=== PATIENT | male | born 1995 | race Caucasian/White ===

== ENCOUNTER 2016-11-27 | Emergency (ER) | payer MEDICAID ==
--- NOTE | 2016-11-27 12:08 | ED Physician Documentation ---
PD HPI GI BLEED - Stated complaint Stated Complaint: BLOOD IN STOOL - Chief complaint Chief Complaint: Abd Pain - History obtained from History obtained from: Patient - History of Present Illness Timing - onset: Today Timing - details: Abrupt onset (while having a BM, he had a sharp aching pain in rectum that traveled into back and then noted red blood when he wiped. No prior similar. Had not had BM for 4 days but did not feel stool was particularly hard or large.). No: Still present Similar symptoms before: Has not had sx before Recently seen: Not recently seen Review of Systems Constitutional: denies: Fever, Chills GI: reports: Constipation (for 4 days had not had BM). denies: Abdominal Pain, Vomiting, Diarrhea : denies: Dysuria, Frequency PD PAST MEDICAL HISTORY - Past Medical History GI: None : None Psych: Bipolar disorder, ADD/ADHD - Past Surgical History Past Surgical History: No - Present Medications Home Medications: Ambulatory Orders Medication Instructions Recorded Confirmed Famotidine [Pepcid] 20 mg PO BID #30 tablet 06/06/16 11/27/16 Docusate Sodium 100 mg PO DAILY #30 capsule 11/27/16 Hydrocortisone Acetate [Anucort-Hc] 25 mg RC DAILY #5 supp.rect 11/27/16 - Allergies Allergies/Adverse Reactions: Allergies Allergy/AdvReac Type Severity Reaction Status Date / Time No Known Drug Allergies Allergy Verified 11/27/16 11:27 - Living Situation Living Situation: reports: With spouse/s.o. (who is male, but they deny rectal intercourse.) Living Arrangement: reports: At home - Social History Does the pt smoke?: Yes Smoking Status: Current every day smoker Does the pt drink ETOH?: Yes Does the pt have substance abuse?: Yes - Immunizations Immunizations are current?: Yes PD ED PE NORMAL - Vitals Vital signs reviewed: Yes - General General: Alert and oriented X 3, Well developed/nourished, Other (anxious) - Abdomen Abdomen: Soft, Non tender - Male Male : Deferred - Rectal Rectal: Other (no hemorrhoids. Small anal fissure wihtout bleeding right now. Digital exam with small fissure feeling, and is tender. Trace of red blood just inside sphincter. Firm stool in vault without impaction. ) - Derm Derm: Normal color, Warm and dry Results - Vitals Vitals: Vital Signs - 24 hr 11/27/16 12:33 Temperature 36.1 C L Heart Rate 61 Respiratory 18 Rate Blood Pressure 134/60 H O2 Saturation 96 Oxygen O2 Source Room air PD MEDICAL DECISION MAKING - ED course Complexity details: considered differential (there is small fissure on exam. trace blood in vault. Stool firm but not impacted. Seems rectal cause of blood. ), d/w patient Departure - Departure Disposition: Home, Self Care Clinical Impression: Rectal bleeding, Acute anal fissure Condition: Stable Record reviewed to determine appropriate education?: Yes Instructions: ED Hematochezia Stable, ED Fissure Anal Ch Follow-Up: Theresa Bojorquez ARNP [Primary Care Provider] - Prescriptions: Hydrocortisone Acetate [Anucort-Hc] 25 mg RC DAILY #5 supp.rect Docusate Sodium 100 mg PO DAILY #30 capsule Comments: The stool test does show a little bit of blood to the stool (so some make be just unusual coloring). There is small tear near rectal opening, so I think that is the cause. Anti-inflammatory suppository daily for 3-5 days until better. Stool softener for the next 1-2 weeks. Recheck if not better over the next few days. Discharge Date/Time: 11/27/16 12:38
== END 2016-11-27 12:38 | disposition home or self-care (01) ==
CPT/HCPCS: 99283

== ENCOUNTER 2017-05-14 21:15 | Emergency (ER) | payer MEDICAID ==
--- NOTE | 2017-05-14 23:19 | ED Physician Documentation ---
History of Present Illness - Stated complaint Stated Complaint: TINGLING/NUMBNESS - Chief complaint Chief Complaint: General - History obtained from History obtained from: Patient - History of Present Illness Timing: Today - Additonal information Additional information: Patient is a 22 year old male who is presenting to the emergency department for heart racing and parasthesias. 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 when he started to get some tingling in his face and hands. patient states that it left his face but he felt it in both his feet. Patient did say that he did drink two coffees this morning, dr. pepper this afternoon, and the water he drinks he uses an energy flavor packet. Upon initial evaluation in the emergency department patient was feeling better. Review of Systems Constitutional: denies: Fever, Chills Eyes: denies: Decreased vision, Photophobia Ears: denies: Ear pain, Drainage/discharge Nose: denies: Congestion Throat: denies: Sore throat Cardiac: reports: Palpitations. denies: Chest pain / pressure, Calf pain Respiratory: denies: Cough, Wheezing GI: reports: Nausea. denies: Vomiting, Constipation, Diarrhea Musculoskeletal: denies: Neck pain, Back pain, Extremity pain Neurologic: reports: Numbness. denies: Generalized weakness, Focal weakness Immunocompromised: denies: Immunocompromised PD PAST MEDICAL HISTORY - Past Medical History Past Medical History: Yes GI: None : None Psych: Depression, Anxiety, Bipolar disorder, ADD/ADHD - Past Surgical History Past Surgical History: No - Present Medications Home Medications: Ambulatory Orders Medication Instructions Recorded Confirmed Famotidine [Pepcid] 20 mg PO BID #30 tablet 06/06/16 05/14/17 - Allergies Allergies/Adverse Reactions: Allergies Allergy/AdvReac Type Severity Reaction Status Date / Time No Known Drug Allergies Allergy Verified 11/27/16 11:27 - Social History Does the pt smoke?: Yes Smoking Status: Current every day smoker Does the pt drink ETOH?: No Does the pt have substance abuse?: Yes Substance Use and Type: Marijuana - Immunizations Immunizations are current?: Yes - POLST Patient has POLST: No PD ED PE NORMAL - Vitals Vital signs reviewed: Yes (within normal limits) - General General: Alert and oriented X 3, No acute distress, Well developed/nourished - HEENT HEENT: Atraumatic, PERRL, Moist mucous membranes - Neck Neck: Supple, no meningeal sign, No JVD - Cardiac Cardiac: RRR, No murmur - Respiratory Respiratory: No respiratory distress, Clear bilaterally - Abdomen Abdomen: Soft, Non tender, Non distended - Derm Derm: Normal color, Warm and dry, No rash - Extremities Extremities: No deformity, No edema, No calf tenderness / cord - Neuro Neuro: Alert and oriented X 3, 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, No motor deficit, No sensory deficit, Normal speech - Psych Psych: Normal mood, Normal affect Results - Vitals Vitals: Vital Signs - 24 hr 05/14/17 05/14/17 21:19 23:34 Temperature 36.8 C Heart Rate 88 56 L Respiratory 20 17 Rate Blood Pressure 128/68 117/70 O2 Saturation 100 96 Oxygen O2 Source Room air - EKG (time done) 2315 Rate: Rate (enter#) (59) Rhythm: NSR [place]: Normal Intervals: Normal [place] QRS: Normal Ischemia: Normal ST segments Computer interpretation: Agree with computer PD MEDICAL DECISION MAKING - ED course Complexity details: reviewed old records, reviewed results, re-evaluated patient , considered differential, d/w patient ED course: Patient was seen and examined at bedside. Patient was well appearing and in no acute distress. ekg was performed and within normal limits. Patient had no focal neurological deficits and required no further testing at this time. Patient was educated on the harm of excessive caffeine ingestion. Patient was stable for discharge with outpatient follow up. Departure - Departure Disposition: 01 Home, Self Care Clinical Impression: Paresthesia Condition: Good Instructions: ED Paraesthesias Follow-Up: Theresa Bojorquez ARNP [Primary Care Provider] - Within 1 week Comments: Your diagnostics today were within normal limits. You should cut back on the amount of caffeine you are ingesting and increase your water intake. You should follow up with your pmd this week if the symptoms return. You may return to the emergency department at any time for new, worsening or uncontrollable symptoms. Discharge Date/Time: 05/14/17 23:37
[2017-05-14 23:35] VITALS: BP 117/70
== END 2017-05-14 23:37 | disposition home or self-care (01) ==
LOC: ED 21:15
DX: R20.2 Paresthesia of skin (principal); F17.200 Nicotine dependence, unspecified, uncomplicated
CPT/HCPCS: 93005; 99283

== ENCOUNTER 2017-08-14 08:00 | Outpatient (CLI) | payer MEDICAID ==
[2017-08-14 13:00] LABS: BASOPHILS % (AUTO) 0.5 %; EOSINOPHILS # (AUTO) 0.1 10^3/uL (0.0-0.7); EOSINOPHILS % (AUTO) 2.4 %; HCT - HEMATOCRIT 44.4 % (42.0-52.0); HGB - HEMOGLOBIN 15.2 g/dL (14.0-18.0); LYMPHOCYTES # (AUTO) 1.9 10^3/uL (1.5-3.5); LYMPHOCYTES % (AUTO) 31.7 %; MEAN CORPUSCULAR HEMOGLOBIN 31.1 pg (27.0-31.0); MEAN CORPUSCULAR HGB CONC 34.3 g/dL (32.0-36.0); MEAN CORPUSCULAR VOLUME 90.7 fL (80.0-94.0); MEAN PLATELET VOLUME 9.1 fL (7.4-11.4); MONOCYTES # (AUTO) 0.4 10^3/uL (0.0-1.0); MONOCYTES % (AUTO) 7.3 %; NEUTROPHILS # (AUTO) 3.5 10^3/uL (1.5-6.6); NEUTROPHILS % (AUTO) 58.1 %; NUCLEATED RED BLOOD CELLS AUTO 0.1 /100WBC; RED BLOOD COUNT 4.89 10^6/uL (4.70-6.10); RED CELL DISTRIBUTION WIDTH 12.2 % (12.0-15.0); UNCORRECTED WHITE BLOOD COUNT 6.1 x10^3/uL; WHITE BLOOD COUNT 6.1 x10^3/uL (4.8-10.8)
[2017-08-14 13:53] LABS: BILIRUBIN,TOTAL 0.8 mg/dL (0.2-1.0); BUN - BLOOD UREA NITROGEN 22 mg/dL (6-20); CARBON DIOXIDE - CO2 26 mmol/L (21-32); CHLORIDE 106 mmol/L (101-111); CREATININE 0.9 mg/dL (0.6-1.2); GFR - MDRD 106 (>89); GLUCOSE 85 mg/dL (70-100); POTASSIUM 3.9 mmol/L (3.5-5.0); SODIUM 138 mmol/L (135-145); TOTAL PROTEIN 7.8 g/dL (6.7-8.2)
== END 2017-08-14 08:01 | disposition home or self-care (01) ==
LOC: LAB.N 08:00
PROVIDERS: ATTEND Family Medicine
DX: R56.9 Unspecified convulsions (principal)
CPT/HCPCS: 36415; 80053; 84443; 85025

== ENCOUNTER 2017-11-24 12:32 | Outpatient (CLI) | payer MEDICAID ==
[~2017-11-24 12:32] MED LIST: GADOBUTROL 7.5 MMOL/7.5 ML VIAL ONE
[2017-11-24] MEDS: GADOBUTROL 7.5 MMOL/7.5 ML VIAL IVP ONE (13:46)
--- NOTE | 2017-11-24 21:49 | MRI Report ---
EXAM: MRI BRAIN WITHOUT AND WITH CONTRAST EXAM DATE: 11/24/2017 01:53 PM. CLINICAL HISTORY: 22-year-old man with seizures. COMPARISON: None. TECHNIQUE: Multiplanar, multisequence T1-weighted and fluid-sensitive MR sequences of the brain were performed. Sequences optimized for routine evaluation. Other: None. IV Contrast: 6.5 cc Gadavist. FINDINGS: Parenchyma: No evidence of acute infarct on diffusion weighted sequence. Parenchyma demonstrates norm al signal intensity on T1- and T2-weighted sequences. No evidence of focal cortical dysplasia, hetero topia, or abnormal gyration. Prominent perivascular spaces are present in the left inferior basal levy glia. No evidence of prior hemorrhage on susceptibility weighted sequence. No abnormal enhancement. Hippocampi: Symmetric and qualitatively normal in size and signal. Internal architecture appears inta ct bilaterally, but mild motion artifact decrease in sensitivity. Pituitary: Unremarkable. Ventricles and Extra-axial Spaces: Ventricles are symmetric and normal in size for age. Extra-axial s paces are unremarkable. No abnormal enhancement. Orbits: Unremarkable. Sinuses: Paranasal sinuses and mastoid air cells are clear. Major Vascular Flow Voids: Intact. Dural Venous Sinuses and Major Central Veins: Patent on post-contrast images. IMPRESSION: 1. Normal brain MRI. No structural lesion is identified to suggest potential source of seizures. [facility] Referring Provider Line: [phone] SITE ID: [id number]
== END 2017-11-24 12:33 | disposition home or self-care (01) ==
LOC: DI 12:32
PROVIDERS: ATTEND Psychiatry & Neurology Neurology
DX: R56.9 Unspecified convulsions (principal)
CPT/HCPCS: 70553; A9585

== ENCOUNTER 2018-01-18 08:21 | Emergency (ER) | payer MEDICAID ==
[2018-01-18] MEDS ORDERED: oxyCOD/ACETAMIN 5 MG/325 MG TABLET PO STA (08:57)
[2018-01-18] MEDS ORDERED: LIDOCAINE VISCOUS 2% 15 ML UDC MM STA (08:57)
[2018-01-18] MEDS ORDERED: MAG HYDROX/AL HYDROX/SIMETH 30 ML UDC PO STA (08:57)
[2018-01-18] MEDS ORDERED: SODIUM CHLORIDE 0.9% 1,000 ML IV ONE ×2 (08:58→10:19)
[2018-01-18] MEDS ORDERED: MORPHINE 2 MG/ML SYRINGE IVP STA ×2 (08:59→12:57)
[2018-01-18] MEDS ORDERED: ONDANSETRON 4 MG/2 ML VIAL IVP STA ×2 (08:59→12:57)
[2018-01-18] MEDS ORDERED: IOPAMIDOL-300 100 ML VIAL ONE (09:11)
[2018-01-18] MEDS ORDERED: IOPAMIDOL-300 50 ML VIAL ONE (09:11)
[2018-01-18 09:14] LABS: BASOPHILS % (AUTO) 0.2 %; EOSINOPHILS # (AUTO) 0.1 10^3/uL (0.0-0.7); EOSINOPHILS % (AUTO) 0.9 %; HGB - HEMOGLOBIN 16.1 g/dL (14.0-18.0); LYMPHOCYTES # (AUTO) 1.8 10^3/uL (1.5-3.5); LYMPHOCYTES % (AUTO) 17.9 %; MEAN CORPUSCULAR HEMOGLOBIN 31.1 pg (27.0-31.0); MEAN CORPUSCULAR HGB CONC 34.5 g/dL (32.0-36.0); MEAN CORPUSCULAR VOLUME 90.4 fL (80.0-94.0); MONOCYTES # (AUTO) 0.5 10^3/uL (0.0-1.0); MONOCYTES % (AUTO) 5.3 %; NEUTROPHILS # (AUTO) 7.8 10^3/uL (1.5-6.6); NEUTROPHILS % (AUTO) 75.7 %; PLT - PLATELET COUNT 298 10^3/uL (130-450); RED BLOOD COUNT 5.18 10^6/uL (4.70-6.10); RED CELL DISTRIBUTION WIDTH 12.3 % (12.0-15.0); WHITE BLOOD COUNT 10.3 x10^3/uL (4.8-10.8)
[2018-01-18 09:24] LABS: ALBUMIN 5.4 g/dL (3.2-5.5); ALBUMIN/GLOBULIN RATIO 1.7 (1.0-2.2); BILIRUBIN,TOTAL 0.8 mg/dL (0.2-1.0); CALCIUM 9.8 mg/dL (8.5-10.3); TOTAL PROTEIN 8.6 g/dL (6.7-8.2)
[2018-01-18] MEDS ORDERED: FAMOTIDINE 20 MG/50 ML 50 ML IV ONE (09:26)
--- NOTE | 2018-01-18 09:46 | ED Physician Documentation ---
History of Present Illness - Stated complaint Stated Complaint: ABD PX - Chief complaint Chief Complaint: Abd Pain - Additonal information Additional information: hx from pt 22 male no prior medical problem ns - but takes prilosec and no prior surgeries abrupt onset severe sharp LUQ pain at 330 AM no rad to chest shoulder or back NV s blood no diarrhea no travel no bad food no sick contacts no hx same Review of Systems Constitutional: denies: Fever, Chills Cardiac: denies: Chest pain / pressure Respiratory: denies: Dyspnea, Cough GI: reports: Abdominal Pain, Nausea, Vomiting. denies: Diarrhea, Hematemesis, Bloody / black stool Musculoskeletal: denies: Back pain Endocrine: denies: Easy bruising / bleeding Immunocompromised: denies: Immunocompromised PD PAST MEDICAL HISTORY - Past Medical History Past Medical History: Yes Cardiovascular: None Respiratory: Asthma Neuro: None Endocrine/Autoimmune: None GI: None : None HEENT: None Psych: Depression, Anxiety, Bipolar disorder, ADD/ADHD Musculoskeletal: None Derm: None - Past Surgical History Past Surgical History: No - Present Medications Home Medications: Ambulatory Orders Medication Instructions Recorded Confirmed Famotidine [Pepcid] 20 mg PO BID #30 tablet 06/06/16 05/14/17 Ondansetron Odt [Zofran] 4 mg TL Q6H PRN #10 tablet 01/18/18 Sucralfate 1 gm PO ACHS #120 tablet 01/18/18 raNITIdine [Zantac] 150 mg PO BID #60 tablet 01/18/18 - Allergies Allergies/Adverse Reactions: Allergies Allergy/AdvReac Type Severity Reaction Status Date / Time No Known Drug Allergies Allergy Verified 11/27/16 11:27 - Social History Does the pt smoke?: Yes Smoking Status: Current every day smoker Does the pt drink ETOH?: No Does the pt have substance abuse?: Yes Substance Use and Type: Marijuana - Immunizations Immunizations are current?: Yes - POLST Patient has POLST: No PD ED PE NORMAL - Vitals Vital signs reviewed: Yes - General General: Other (crying in pain) - Neck Neck: Supple, no meningeal sign - Cardiac Cardiac: RRR - Respiratory Respiratory: No respiratory distress, Clear bilaterally - Abdomen Abdomen: Other (+ BS, severe TTP LUQ with guarding, right side NT) - Derm Derm: Normal color - Neuro Neuro: Alert and oriented X 3 Results - Vitals Vitals: Vital Signs - 24 hr 01/18/18 01/18/18 08:31 10:53 Temperature 35.5 C L Heart Rate 63 50 L Respiratory 18 16 Rate Blood Pressure 131/60 H 144/73 H O2 Saturation 100 100 Oxygen O2 Source Room air - Labs Labs: Laboratory Tests 01/18/18 01/18/18 01/18/18 08:35 08:35 09:30 WBC 10.3 RBC 5.18 Hgb 16.1 Hct 46.8 MCV 90.4 MCH 31.1 H MCHC 34.5 RDW 12.3 Plt Count 298 MPV 9.0 Neut # 7.8 H Lymph # 1.8 Rhea # 0.5 Eos # 0.1 Baso # 0.0 Absolute Nucleated RBC 0.01 Nucleated RBC % 0.1 Sodium 138 Potassium 3.3 L Chloride 105 Carbon Dioxide 21 Anion Gap 12.0 BUN 20 Creatinine 1.0 Estimated GFR (MDRD) 93 Glucose 139 H Calcium 9.8 Total Bilirubin 0.8 AST 26 ALT 19 Alkaline Phosphatase 59 Total Protein 8.6 H Albumin 5.4 Globulin 3.2 Albumin/Globulin Ratio 1.7 Lipase 12 L Urine Color DARK YELLOW Urine Clarity CLEAR Urine pH 8.5 H Ur Specific [place] 1.020 Urine Protein TRACE Urine Glucose (UA) NEGATIVE Urine Ketones 15 H Urine Occult Blood NEGATIVE Urine Nitrite NEGATIVE Urine Bilirubin NEGATIVE Urine Urobilinogen 0.2 (NORMAL) Ur Leukocyte Esterase NEGATIVE Ur Microscopic Review NOT INDICATED Urine Culture Comments NOT INDICATED - Rads (name of study) CT AP Radiology: See rad report (no bowel obst, no FF, no free air appendix not seen, no secondary signs) PD MEDICAL DECISION MAKING - ED course ED course: sx cs PUD, concern for perf, got CT, no perf, will dc with meds and follow up for EGD Departure - Departure Disposition: 01 Home, Self Care Clinical Impression: Peptic ulcer disease Condition: Good Instructions: ED PUD Follow-Up: Theresa Bojorquez ARNP [Primary Care Provider] - Guru Epperson MD [Provider Admit Priv/Credential] - Prescriptions: Ondansetron Odt [Zofran] 4 mg TL Q6H PRN #10 tablet PRN Reason: Nausea / Vomiting raNITIdine [Zantac] 150 mg PO BID #60 tablet Sucralfate 1 gm PO ACHS #120 tablet Comments: The CT scan was fine - no perforation, also normal spleen liver gallbladder pancreas kidneys and bowels. I suspect you have ulcer disease Take the medications I prescribed, avoid alcohol caffeine spicy foods and citrus Follow up with Dr Epperson or another surgeon in the clinic for consideration of EGD ( a scopeof your stomach) Return if worse
[2018-01-18 09:52] LABS: BILIRUBIN,URINE NEGATIVE (NEGATIVE); GLUCOSE, URINE (UA) NEGATIVE (NEGATIVE); KETONES,URINE (UA) 15 mg/dL (NEGATIVE); LEUKOCYTE ESTERASE, URINE NEGATIVE (NEGATIVE); NITRITE,URINE NEGATIVE (NEGATIVE); OCCULT BLOOD,URINE NEGATIVE (NEGATIVE); PH,URINE 8.5 PH (5.0-7.5); PROTEIN,URINE TRACE mg/dL (NEGATIVE); UROBILINOGEN,URINE 0.2 (NORMAL) E.U./dL (NORMAL)
[2018-01-18 09:55] LABS: CLARITY,URINE CLEAR (CLEAR)
[2018-01-18] MEDS ORDERED: IOPAMIDOL-300 50 ML VIAL PO ONE (10:07)
[2018-01-18] MEDS ORDERED: IOPAMIDOL-300 100 ML VIAL IVP ONE (10:07)
--- NOTE | 2018-01-18 10:19 | CT Preliminary Report ---
Exam: CT ABDOMEN/PELVIS W/ IMPRESSION: 1. No bowel obstruction or inflammatory process associated with the bowel. 2. No free air or fluid in the abdomen or pelvis. 3. The appendix is not visualized but there are no secondary signs of acute appendicitis. [facility] SITE ID: [id number]
--- NOTE | 2018-01-18 10:20 | CT Report ---
EXAM: CT ABDOMEN AND PELVIS EXAM DATE: 01/18/2018 10:07 AM. CLINICAL HISTORY: Abrupt onset severe LUQ pain peritioneal. COMPARISONS: None. TECHNIQUE: Routine helical CT imaging was performed through the abdomen and pelvis. IV contrast: ISOV UE 300 100mL. Enteric contrast: No. Reconstructions: Coronal and sagittal. In accordance with CT protocol optimization, one or more of the following dose reduction techniques w ere utilized for this exam: automated exposure control, adjustment of mA and/or KV based on patient s ize, or use of iterative reconstructive technique. FINDINGS: Lung Bases: Unremarkable. Liver: Normal. No masses. Gallbladder/Bile Ducts: Unremarkable. Spleen: Normal. Pancreas: Normal. Adrenal Glands: Normal. Kidneys: Normal. No masses or hydronephrosis. Peritoneal Cavity/Bowel: Normal. No free fluid, free air or adenopathy. No masses or acute inflammato ry process. The appendix is not visualized. No secondary signs of acute appendicitis. Pelvic Organs: Normal. The bladder and visualized pelvic organs are within normal limits. Vasculature: No aneurysms or other significant abnormality. Bones: No significant abnormality. Other: None. IMPRESSION: 1. No bowel obstruction or inflammatory process associated with the bowel. 2. No free air or fluid in the abdomen or pelvis. 3. The appendix is not visualized but there are no secondary signs of acute appendicitis. [facility] Referring Provider Line: [phone] SITE ID: [id number]
[2018-01-18 10:57] VITALS: BP 144/73
== END 2018-01-18 13:20 | disposition home or self-care (01) ==
LOC: ED 08:21
DX: K27.9 Peptic ulcer, site unspecified, unspecified as acute or chronic, without hemorrhage or perforation (principal); J45.909 Unspecified asthma, uncomplicated; F17.200 Nicotine dependence, unspecified, uncomplicated
CPT/HCPCS: 36415; 74177; 80053; 81003; 83690; 85025; 96361; 96365; 96375; 96376; 99283; A9270; J2270; Q9967; 81001; 87086

== ENCOUNTER 2018-04-01 08:50 | Day surgery (SDC) | payer MEDICAID ==
[2018-04-01] MEDS ORDERED: LACTATED RINGERS 1,000 ML IV ONE (08:55)
[2018-04-01] MEDS ORDERED: LIDO GARGLE 30 ML BOTTLE ONE (11:20)
[2018-04-01] MEDS ORDERED: fentaNYL 250 MCG/5 ML VIAL IVP ONE (11:22)
[2018-04-01] MEDS ORDERED: MIDAZOLAM 2 MG/2 ML VIAL IVP ONE (11:22)
[2018-04-01] MEDS ORDERED: LIDO GARGLE 30 ML BOTTLE TOP ONE (11:24)
[2018-04-01] MEDS ORDERED: LACTATED RINGERS 500 ML IV ONE (12:30)
[2018-04-01 13:17] VITALS: BP 118/61
== END 2018-04-01 08:51 | disposition home or self-care (01) ==
LOC: SDS 08:50
PROVIDERS: ATTEND Internal Medicine Gastroenterology
PROC: 0DB98ZX Excision of Duodenum, Via Natural or Artificial Opening Endoscopic, Diagnostic (ICD-10-PCS; principal; 2018-04-01 11:00)
DX: R10.12 Left upper quadrant pain (principal); K21.9 Gastro-esophageal reflux disease without esophagitis; K29.70 Gastritis, unspecified, without bleeding; K22.9 Disease of esophagus, unspecified
CPT/HCPCS: 43239; 87081; A9270; J3010; J7120; 88305

== ENCOUNTER 2018-12-09 20:02 | Emergency (ER) | payer MEDICAID ==
--- NOTE | 2018-12-09 21:04 | ED Physician Documentation ---
PD HPI CHEST PAIN - Stated complaint Stated Complaint: CP/LEFT ARM TINGLE - Chief complaint Chief Complaint: Cardiac - History obtained from History obtained from: Patient - History of Present Illness Timing - onset: Today (He was reaching for something at work and felt a sudden severe pain in the anterior left chest wall radiating to the shoulder, it is now almost gone. He was very briefly short of breath with it, there is no associated calf pain or recent travel. No cough. No fevers.) Review of Systems Constitutional: reports: Reviewed and negative Nose: denies: Rhinorrhea / runny nose, Congestion Cardiac: reports: Chest pain / pressure. denies: Palpitations Respiratory: denies: Dyspnea, Cough PD PAST MEDICAL HISTORY - Past Medical History Cardiovascular: None Respiratory: Asthma Endocrine/Autoimmune: None GI: GERD : None HEENT: None Psych: None Musculoskeletal: None Derm: None - Past Surgical History Past Surgical History: No HEENT: Other - Present Medications Home Medications: Ambulatory Orders Medication Instructions Recorded Confirmed Sucralfate 1 gm PO ACHS #120 tablet 01/18/18 04/01/18 raNITIdine [Zantac] 150 mg PO BID #60 tablet 01/18/18 04/01/18 buPROPion [Wellbutrin Sr] 150 mg PO BID 03/31/18 04/01/18 - Allergies Allergies/Adverse Reactions: Allergies Allergy/AdvReac Type Severity Reaction Status Date / Time No Known Drug Allergies Allergy Verified 12/09/18 20:11 - Social History Does the pt smoke?: Yes Smoking Status: Current every day smoker Does the pt drink ETOH?: No Does the pt have substance abuse?: Yes - Immunizations Immunizations are current?: Yes - POLST Patient has POLST: No PD ED PE NORMAL - Vitals Vital signs reviewed: Yes - General General: Alert and oriented X 3, No acute distress - HEENT HEENT: PERRL, EOMI - Neck Neck: Supple, no meningeal sign, No bony TTP - Cardiac Cardiac: RRR, No murmur, No rub, Other (He has reproducible and significant tenderness of the anterior left chest wall consistent with musculoskeletal strain. It is lateral to the costochondral joints.) - Respiratory Respiratory: No respiratory distress, Clear bilaterally - Extremities Extremities: No edema, No calf tenderness / cord - Neuro Neuro: Alert and oriented X 3, Normal speech - Psych Psych: Normal mood, Normal affect Results - Vitals Vitals: Vital Signs - 24 hr 12/09/18 12/09/18 20:06 21:06 Temperature 36.9 C 36.5 C Heart Rate 79 60 Respiratory 18 16 Rate Blood Pressure 124/69 124/95 H O2 Saturation 98 98 Oxygen O2 Source Room air - EKG (time done) 2009 Rhythm: NSR [place]: Normal Intervals: Normal [place] QRS: Normal Ischemia: ST elevation c/w repol Computer interpretation: Agree with computer - Rads (name of study) 2v chest Radiology: EMP read contemporaneously (normal) Departure - Departure Disposition: Home, Self Care Clinical Impression: Chest wall pain Condition: Good Record reviewed to determine appropriate education?: Yes Instructions: ED Strain Chest Wall Comments: Ibuprofen as needed for pain, relative rest for the next few days with gentle range of motion exercises with the left arm. Return for new or worsening symptoms.
--- NOTE | 2018-12-09 22:01 | XRAY Report ---
Reason: chest pain Procedure Date: 12/09/2018 Accession Number: [id number] / [id number] Procedure: XR - Chest 2 View X-Ray CPT Code: 77289 FULL RESULT: EXAM: CHEST RADIOGRAPHY EXAM DATE: 12/09/2018 09:31 PM. CLINICAL HISTORY: Chest Pain. COMPARISON: CHEST 1 VIEW 06/06/2016 10:06 AM. TECHNIQUE: 2 views. FINDINGS: Lungs/Pleura: No focal opacities evident. No pleural effusion. No pneumothorax. Normal volumes. Mediastinum: Heart and mediastinal contours are unremarkable. Other: None. IMPRESSION: Normal 2-view chest radiography. [facility]
[2018-12-09 22:19] VITALS: BP 122/72
== END 2018-12-09 22:21 | disposition home or self-care (01) ==
LOC: ED 20:02
DX: R07.89 Other chest pain (principal); F17.200 Nicotine dependence, unspecified, uncomplicated
CPT/HCPCS: 71046; 93005; 99283; 99284

== ENCOUNTER 2019-06-15 11:58 | Emergency (ER) | payer MEDICAID ==
[2019-06-15 12:04] VITALS: BP 149/71
--- NOTE | 2019-06-15 12:08 | ED Physician Documentation ---
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 [place] less when went outside and cooled down. Then worse back in work again. Feeling less here but not completely resolved. No prior similar.), Waxing and waning Quality: Cramping, Aching. No: Fullness/distended Location: Other (upper abd) Radiation: No: Chest, Lower back Improved by: Other (cooler environment) Worsened by: Palpation. No: Moving, Breathing Associated symptoms: Nausea, Dizzy (felt lightheaded with it). No: Fever, Vomiting, Diarrhea, Loss of appetite Similar symptoms before: Has not had sx before (has reflux/heartburn at times, but not pains like this in the past.) Recently seen: Not recently seen Review of Systems Constitutional: denies: Fever, Chills Nose: denies: Rhinorrhea / runny nose, Congestion Throat: denies: Sore throat Respiratory: denies: Cough GI: denies: Abdominal Swelling, Constipation, Diarrhea : denies: Dysuria, Frequency Skin: denies: Rash, Lesions PD PAST MEDICAL HISTORY - Past Medical History Cardiovascular: None Respiratory: Asthma Endocrine/Autoimmune: None GI: GERD : None HEENT: None Psych: None Musculoskeletal: None Derm: None - Past Surgical History Past Surgical History: No HEENT: Other - Present Medications Home Medications: Ambulatory Orders Medication Instructions Recorded Confirmed Sucralfate 1 gm PO ACHS #120 tablet 01/18/18 04/01/18 raNITIdine [Zantac] 150 mg PO BID #60 tablet 01/18/18 04/01/18 buPROPion [Wellbutrin Sr] 150 mg PO BID 03/31/18 04/01/18 - Allergies Allergies/Adverse Reactions: Allergies Allergy/AdvReac Type Severity Reaction Status Date / Time No Known Drug Allergies Allergy Verified 06/15/19 12:03 - Social History Does the pt smoke?: Yes Smoking Status: Current every day smoker Does the pt drink ETOH?: No Does the pt have substance abuse?: Yes - Immunizations Immunizations are current?: Yes - POLST Patient has POLST: No PD ED PE NORMAL - Vitals Vital signs reviewed: Yes - General General: Alert and oriented X 3, No acute distress, Well developed/nourished - HEENT HEENT: Pharynx benign - Neck Neck: Supple, no meningeal sign, No adenopathy - Cardiac Cardiac: RRR, No murmur - Respiratory Respiratory: Clear bilaterally - Abdomen Abdomen: Soft, Non distended, No organomegaly, Other (tender in upper abd mid most, but in RUQ as well. ) - Back Back: No CVA TTP - Derm Derm: Normal color, Warm and dry - Neuro Neuro: Alert and oriented X 3, No motor deficit, Normal speech Results - Vitals Vitals: Vital Signs - 24 hr 06/15/19 12:01 Temperature 36.9 C Heart Rate 69 Respiratory 16 Rate Blood Pressure 149/71 H O2 Saturation 100 Oxygen O2 Source Room air - Labs Labs: Laboratory Tests 06/15/19 06/15/19 12:37 12:37 WBC 9.6 RBC 4.76 Hgb 15.2 Hct 43.8 MCV 92.0 MCH 31.9 H MCHC 34.7 RDW 11.4 L Plt Count 244 MPV 9.9 Neut # (Auto) 7.0 H Lymph # (Auto) 1.8 [place] # (Auto) 0.6 Eos # (Auto) 0.1 Baso # (Auto) 0.0 Absolute Nucleated RBC 0.00 Nucleated RBC % 0.0 Sodium 140 Potassium 3.9 Chloride 104 Carbon Dioxide 26 Anion Gap 10.0 BUN 18 Creatinine 0.8 Estimated GFR (MDRD) 119 Glucose 107 H Calcium 9.8 Total Bilirubin 1.1 H AST 18 ALT 18 Alkaline Phosphatase 53 Total Protein 8.2 Albumin 5.3 Globulin 2.9 Albumin/Globulin Ratio 1.8 Lipase 20 L - Rads (name of study) abd U/S Radiology: Prelim report reviewed (some sludge in GB; no stones nor wall thickening), See rad report PD MEDICAL DECISION MAKING - ED course Complexity details: re-evaluated patient (consider biliary colic. No signs of cholecystitis. Did feel better with GI cocktail. So more likely gastritis and also some intestinal colic. Onset during feeling overheated at work, so could be some heat illness.), considered differential, d/w patient Departure - Departure Disposition: 01 Home, Self Care Clinical Impression: Upper abdominal pain Condition: Stable Record reviewed to determine appropriate education?: Yes Instructions: ED Abdominal Pain Unkn Cause Follow-Up: Theresa Bojorquez ARNP [Primary Care Provider] - Comments: Your blood tests and ultrasound appear normal. No signs of presume your pain was either stomach or intestinal. It could been related to the heat of the area. However there may also be a little bit of a viral illness or some irritated stomach. Use your omeprazole daily for the next week. Add antacid such as Maalox or Mylanta periodically if needed. Tylenol as needed for pains or cramps. Stay well-hydrated. Recheck if not improved completely over the next couple of days and return sooner if worsening. Forms: Activity restrictions Discharge Date/Time: 06/15/19 13:50
[2019-06-15] MEDS ORDERED: ACETAMINOPHEN 325 MG TABLET PO STA (12:28)
[2019-06-15] MEDS ORDERED: MAG HYDROX/AL HYDROX/SIMETH 30 ML UDC PO STA (12:28)
[2019-06-15] MEDS ORDERED: FAMOTIDINE 20 MG TABLET PO STA (12:28)
[2019-06-15 12:42] LABS: BASOPHILS % (AUTO) 0.3 %; EOSINOPHILS # (AUTO) 0.1 10^3/uL (0.0-0.7); EOSINOPHILS % (AUTO) 0.8 %; HGB - HEMOGLOBIN 15.2 g/dL (14.0-18.0); LYMPHOCYTES # (AUTO) 1.8 10^3/uL (1.5-3.5); LYMPHOCYTES % (AUTO) 18.8 %; MEAN CORPUSCULAR HEMOGLOBIN 31.9 pg (27.0-31.0); MEAN CORPUSCULAR HGB CONC 34.7 g/dL (32.0-36.0); MEAN PLATELET VOLUME 9.9 fL (7.4-11.4); MONOCYTES # (AUTO) 0.6 10^3/uL (0.0-1.0); MONOCYTES % (AUTO) 6.4 %; NEUTROPHILS % (AUTO) 73.4 %; PLT - PLATELET COUNT 244 10^3/uL (130-450); RED BLOOD COUNT 4.76 10^6/uL (4.70-6.10); RED CELL DISTRIBUTION WIDTH 11.4 % (12.0-15.0); WHITE BLOOD COUNT 9.6 x10^3/uL (4.8-10.8)
[2019-06-15 13:29] LABS: ALBUMIN 5.3 g/dL (3.2-5.5); ALBUMIN/GLOBULIN RATIO 1.8 (1.0-2.2); BILIRUBIN,TOTAL 1.1 mg/dL (0.2-1.0); CALCIUM 9.8 mg/dL (8.5-10.3); CREATININE 0.8 mg/dL (0.6-1.2); TOTAL PROTEIN 8.2 g/dL (6.7-8.2)
--- NOTE | 2019-06-15 13:31 | Ultrasound Report ---
Reason: upper abd pain onset 1-2 hours ago Procedure Date: 06/15/2019 Accession Number: [id number] / [id number] Procedure: US - Abdomen Limited CPT Code: FULL RESULT: EXAM: ABDOMEN ULTRASOUND LIMITED, RUQ EXAM DATE: 06/15/2019 01:08 PM. CLINICAL HISTORY: Upper abdominal pain onset 1-2 hours ago. COMPARISON: None. TECHNIQUE: Real-time scanning was performed with static images obtained. FINDINGS: Liver: Normal in size and echotexture. 17.2 cm. Main portal vein flow: Hepatopetal. Gallbladder: Small volume of sludge. No stones, wall thickening, or sonographic Almonte's sign. Biliary System: CBD measures 2 mm. No intrahepatic or extrahepatic ductal dilatation. Other: Right kidney measured 11.9 cm in length and appeared within normal limits. IMPRESSION: Small amount of gallbladder sludge.. No cholelithiasis or cholecystitis. RADIA
== END 2019-06-15 13:50 | disposition home or self-care (01) ==
LOC: ED 11:58
DX: R10.10 Upper abdominal pain, unspecified (principal); R11.0 Nausea; K82.8 Other specified diseases of gallbladder; T67.9XXA Effect of heat and light, unspecified, initial encounter; X30.XXXA Exposure to excessive natural heat, initial encounter; Y93.G1 Activity, food preparation and clean up; Y92.511 Restaurant or cafe as the place of occurrence of the external cause; Y99.0 Civilian activity done for income or pay; F17.200 Nicotine dependence, unspecified, uncomplicated
CPT/HCPCS: 36415; 76705; 80053; 83690; 85025; 99284; A9270

== ENCOUNTER 2021-05-28 07:55 | Emergency (ER) | payer MEDICAID ==
--- NOTE | 2021-05-28 08:03 | ED Physician Documentation ---
PD HPI ABD PAIN - Stated complaint Stated Complaint: ABD PX - History obtained from History obtained from: Patient - History of Present Illness Timing - onset: Today (awoke overnight with nausea, vomiting, abd cramping.) Timing - duration: Hours Timing - details: Abrupt onset, Still present Quality: Cramping, Aching Location: All over / everywhere, Epigastric Radiation: No: Chest, Lower back Improved by: Vomiting, Other (sitting in hot shower) Worsened by: Eating. No: Breathing, Palpation Associated symptoms: Nausea, Vomiting. No: Fever, Diarrhea, Constipation, Dysuria Similar symptoms before: Diagnosis (3 years ago had similar with Dx of gastritis by EGD. normal GB and pancreas. Has not had recurrent problems recently until this morning.) Recently seen: Not recently seen Review of Systems Constitutional: denies: Fever, Chills Nose: denies: Rhinorrhea / runny nose, Congestion Throat: denies: Sore throat Cardiac: denies: Chest pain / pressure Respiratory: denies: Cough GI: reports: Abdominal Pain, Nausea, Vomiting. denies: Abdominal Swelling, Constipation, Diarrhea Skin: denies: Rash, Lesions Neurologic: denies: Altered mental status, Headache PD PAST MEDICAL HISTORY - Past Medical History Cardiovascular: None Respiratory: Asthma Endocrine/Autoimmune: None GI: GERD : None HEENT: None Psych: None Musculoskeletal: None Derm: None - Past Surgical History Past Surgical History: No HEENT: Other - Present Medications Home Medications: Ambulatory Orders Medication Instructions Recorded Confirmed raNITIdine [Zantac] 150 mg PO BID #60 tablet 01/18/18 05/28/21 Amoxicillin 500 mg PO TID 05/28/21 05/28/21 Famotidine [Pepcid] 20 mg PO DAILY #30 tablet 05/28/21 Ondansetron Odt [Zofran] 4 mg TL Q6H PRN #15 tablet 05/28/21 - Allergies Allergies/Adverse Reactions: Allergies Allergy/AdvReac Type Severity Reaction Status Date / Time No Known Drug Allergies Allergy Verified 05/28/21 08:03 - Social History Does the pt smoke?: Yes Smoking Status: Current every day smoker Does the pt drink ETOH?: No Does the pt have substance abuse?: Yes Substance Use and Type: Marijuana - Family History Family history: reports: Non contributory - Immunizations Immunizations are current?: Yes - POLST Patient has POLST: No PD ED PE NORMAL - Vitals Vital signs reviewed: Yes - General General: Alert and oriented X 3, Well developed/nourished, Other (in marked distress from abd pain and dry-heaving to vomit. ) - HEENT HEENT: Pharynx benign - Neck Neck: Supple, no meningeal sign, No adenopathy - Cardiac Cardiac: RRR, No murmur - Respiratory Respiratory: Clear bilaterally - Abdomen Abdomen: Soft, Non distended, No organomegaly, Other (tender upper to mid abd with guarding but no percussion tenderness. ). No: Normal bowel sounds (diminished) Results - Vitals Vitals: Vital Signs - 24 hr 05/28/21 05/28/21 05/28/21 08:04 08:29 10:01 Temperature 36.5 C 36.6 C Heart Rate 52 L 48 L 58 L Respiratory 20 20 18 Rate Blood Pressure 114/76 114/76 129/93 H O2 Saturation 100 100 99 Oxygen O2 Source Room air - Labs Labs: Laboratory Tests 05/28/21 05/28/21 05/28/21 08:15 08:15 08:55 WBC 14.4 H RBC 4.80 Hgb 15.2 Hct 42.9 MCV 89.4 MCH 31.7 H MCHC 35.4 RDW 11.3 L Plt Count 313 MPV 10.5 Neut # (Auto) 13.0 H Lymph # (Auto) 0.8 L [place] # (Auto) 0.6 Eos # (Auto) 0.0 Baso # (Auto) 0.1 Absolute Nucleated RBC 0.00 Nucleated RBC % 0.0 Sodium 142 Potassium 3.5 Chloride 109 Carbon Dioxide 20 L Anion Gap 13.0 BUN 23 H Creatinine 1.1 Estimated GFR (MDRD) 81 L Glucose 166 H Calcium 10.2 Total Bilirubin 1.6 H AST 21 ALT 21 Alkaline Phosphatase 60 Total Protein 7.8 Albumin 5.4 Globulin 2.4 Albumin/Globulin Ratio 2.3 H Lipase 18 L Urine Color DARK YELLOW Urine Clarity CLEAR Urine pH 8.5 H Ur Specific [place] 1.025 Urine Protein 30 H Urine Glucose (UA) NEGATIVE Urine Ketones >=80 H Urine Occult Blood NEGATIVE Urine Nitrite NEGATIVE Urine Bilirubin NEGATIVE Urine Urobilinogen 1 (NORMAL) Ur Leukocyte Esterase NEGATIVE Urine RBC 0-5 Urine WBC 0-3 Ur Squamous Epith Cells NONE SEEN Urine Bacteria Few Urine Mucus Few Strands Ur Microscopic Review INDICATED Urine Culture Comments NOT INDICATED PD MEDICAL DECISION MAKING - ED course Complexity details: reviewed old records, re-evaluated patient (mostly all improved with fluids/inapsine and famotidine. ), considered differential (abrupt onset N/V and abd pain. Consider pancreatitis, gastritis, but interestingly he did comment on feeling better with hot shower, so consider cannibis hyperemesis, and he does admit to some cannibis use. ), d/w patient Departure - Departure Disposition: 01 Home, Self Care Clinical Impression: Nausea and vomiting Qualifiers: Vomiting type: unspecified Vomiting Intractability: non-intractable Qualified Code(s): R11.2 - Nausea with vomiting, unspecified Condition: Stable Record reviewed to determine appropriate education?: Yes Instructions: ED Nausea Vomiting Prescriptions: Famotidine [Pepcid] 20 mg PO DAILY #30 tablet Ondansetron Odt [Zofran] 4 mg TL Q6H PRN #15 tablet PRN Reason: Nausea / Vomiting Comments: Small frequent fluids. [place] food today and see how your stomach does. Your stomach is likely having some irritation so use famotidine acid reducing medicine daily for the next couple of weeks. Ondansetron if needed for nausea. Discharge Date/Time: 05/28/21 10:06
[2021-05-28] MEDS: FAMOTIDINE 20 MG/2 ML VIAL IVP STA (08:25)
[2021-05-28 08:26] LABS: BASOPHILS # (AUTO) 0.1 10^3/uL (0.0-0.1); BASOPHILS % (AUTO) 0.3 %; HCT - HEMATOCRIT 42.9 % (42.0-52.0); HGB - HEMOGLOBIN 15.2 g/dL (14.0-18.0); LYMPHOCYTES # (AUTO) 0.8 10^3/uL (1.5-3.5); LYMPHOCYTES % (AUTO) 5.4 %; MEAN CORPUSCULAR HEMOGLOBIN 31.7 pg (27.0-31.0); MEAN CORPUSCULAR HGB CONC 35.4 g/dL (32.0-36.0); MEAN CORPUSCULAR VOLUME 89.4 fL (80.0-94.0); MEAN PLATELET VOLUME 10.5 fL (7.4-11.4); MONOCYTES # (AUTO) 0.6 10^3/uL (0.0-1.0); MONOCYTES % (AUTO) 3.8 %; NEUTROPHILS % (AUTO) 90.2 %; PLT - PLATELET COUNT 313 10^3/uL (130-450); RED CELL DISTRIBUTION WIDTH 11.3 % (12.0-15.0); WHITE BLOOD COUNT 14.4 x10^3/uL (4.8-10.8)
[2021-05-28] MEDS: SODIUM CHLORIDE 0.9% 1,000 ML IV STA (08:26)
[2021-05-28] MEDS: DROPERIDOL 5 MG/2 ML VIAL IVP STA (08:26)
[2021-05-28] MEDS: KETOROLAC 15 MG/ML VIAL IVP STA (08:26)
[2021-05-28 08:35] LABS: ALBUMIN 5.4 g/dL (3.2-5.5); ALBUMIN/GLOBULIN RATIO 2.3 (1.0-2.2); BILIRUBIN,TOTAL 1.6 mg/dL (0.2-1.0); CALCIUM 10.2 mg/dL (8.5-10.3); CREATININE 1.1 mg/dL (0.6-1.2); POTASSIUM 3.5 mmol/L (3.5-5.0); TOTAL PROTEIN 7.8 g/dL (6.7-8.2)
[2021-05-28 09:15] LABS: GLUCOSE, URINE (UA) NEGATIVE (NEGATIVE); KETONES,URINE (UA) >=80 mg/dL (NEGATIVE); LEUKOCYTE ESTERASE, URINE NEGATIVE (NEGATIVE); NITRITE,URINE NEGATIVE (NEGATIVE); OCCULT BLOOD,URINE NEGATIVE (NEGATIVE); PH,URINE 8.5 PH (5.0-7.5); PROTEIN,URINE 30 mg/dL (NEGATIVE); UROBILINOGEN,URINE 1 (NORMAL) E.U./dL (NORMAL)
[2021-05-28 09:21] LABS: BILIRUBIN,URINE NEGATIVE (NEGATIVE); CLARITY,URINE CLEAR (CLEAR); ICTOTEST,URINE NEGATIVE
[2021-05-28 09:27] LABS: RBC,URINE 0-5 /HPF (0-5); SQUAMOUS EPITHELIAL CELL,UR NONE SEEN (<= Few); WBC,URINE 0-3 /HPF (0-3)
[2021-05-28 09:28] LABS: BACTERIA,URINE Few /HPF (None Seen); MUCUS,URINE Few Strands
[2021-05-28] MEDS: MAG HYDROX/AL HYDROX/SIMETH 30 ML UDC PO STA (09:41)
[2021-05-28 10:02] VITALS: BP 129/93
== END 2021-05-28 10:06 | disposition home or self-care (01) ==
LOC: ED 07:55
DX: R11.2 Nausea with vomiting, unspecified (principal); R10.13 Epigastric pain; F12.90 Cannabis use, unspecified, uncomplicated; F17.200 Nicotine dependence, unspecified, uncomplicated
CPT/HCPCS: 36415; 80053; 81001; 83690; 85025; 99282; 99283; A9270; 81003; 87086

== ENCOUNTER 2021-10-23 08:00 | Outpatient (CLI) | payer MEDICAID | END 2021-10-23 23:59 | LOC: LAB.N 08:00 | PROVIDERS: ATTEND Family Medicine | DX: U07.1 COVID-19 (principal) | CPT/HCPCS: 87275; 87276 ==

== ENCOUNTER 2022-04-10 08:00 | Outpatient (CLI) | payer MEDICAID | END 2022-04-10 23:59 | disposition home or self-care (01) | LOC: LAB.N 08:00 | PROVIDERS: ATTEND Family Medicine | DX: U07.1 COVID-19 (principal) ==

== ENCOUNTER 2023-06-09 10:30 | Outpatient (CLI) | payer MEDICAID ==
[2023-06-09 18:02] LABS: BASOPHILS % (AUTO) 0.6 %; EOSINOPHILS # (AUTO) 0.1 10^3/uL (0.0-0.7); EOSINOPHILS % (AUTO) 0.7 %; HCT - HEMATOCRIT 43.1 % (42.0-52.0); HGB - HEMOGLOBIN 14.4 g/dL (14.0-18.0); LYMPHOCYTES # (AUTO) 2.4 10^3/uL (1.5-3.5); LYMPHOCYTES % (AUTO) 34.7 %; MEAN CORPUSCULAR HEMOGLOBIN 31.6 pg (27.0-31.0); MEAN CORPUSCULAR HGB CONC 33.4 g/dL (32.0-36.0); MEAN CORPUSCULAR VOLUME 94.5 fL (80.0-94.0); MEAN PLATELET VOLUME 11.2 fL (7.4-11.4); MONOCYTES # (AUTO) 0.6 10^3/uL (0.0-1.0); MONOCYTES % (AUTO) 8.5 %; NEUTROPHILS # (AUTO) 3.8 10^3/uL (1.5-6.6); NEUTROPHILS % (AUTO) 55.4 %; PLT - PLATELET COUNT 292 10^3/uL (130-450); RED BLOOD COUNT 4.56 10^6/uL (4.70-6.10); RED CELL DISTRIBUTION WIDTH 11.5 % (12.0-15.0); WHITE BLOOD COUNT 6.8 x10^3/uL (4.8-10.8)
[2023-06-09 18:11] LABS: ALBUMIN 5.3 g/dL (3.2-5.5); ALBUMIN/GLOBULIN RATIO 2.2 (1.0-2.2); BILIRUBIN,TOTAL 0.6 mg/dL (0.2-1.0); CALCIUM 10.4 mg/dL (8.5-10.3); CREATININE 0.9 mg/dL (0.6-1.3); POTASSIUM 3.8 mmol/L (3.5-4.5); TOTAL PROTEIN 7.7 g/dL (6.4-8.9)
== END 2023-06-09 10:45 | disposition home or self-care (01) ==
LOC: LAB.N 10:30
PROVIDERS: ATTEND Specialist
DX: R10.13 Epigastric pain (principal)
CPT/HCPCS: 36415; 80053; 83690; 85025

== ENCOUNTER 2024-06-30 08:49 | Outpatient (CLI) | payer MEDICAID ==
--- NOTE | 2024-06-30 14:08 | XRAY Report ---
PROCEDURE: Knee 1-2V RT INDICATIONS: PAIN IN RIGHT KNEE TECHNIQUE: 2 views of the knee(s) were acquired. COMPARISON: None. FINDINGS: Bones: No fractures or dislocations. No suspicious bony lesions. Soft tissues: Mild to moderate knee joint effusion. No suspicious soft tissue calcifications or mass es. IMPRESSION: Mild to moderate effusion. No visualized acute fracture or dislocation. However, occult injury cannot be excluded. Recommend short interval imaging follow-up in 7-10 days as clinically indicated for add itional evaluation. Reviewed by: Nicki Mason MD on 06/30/2024 2:06 PM PDT Approved by: Nicki Mason MD on 06/30/2024 2:06 PM PDT Station ID: [id number]
== END 2024-06-30 08:50 | disposition home or self-care (01) ==
LOC: DI.N 08:49
PROVIDERS: ATTEND Physician Assistant Medical
DX: M25.461 Effusion, right knee (principal); M25.561 Pain in right knee